=== PATIENT | male | born 1975 | race African-American/Black ===

== ENCOUNTER 2022-05-15 23:16 | Emergency (ER) | payer OTHER ==
[2022-05-15 23:31] VITALS: BP 154/93; PULSE 83; RESP 17; TEMP 98.1; BMI 31.5
[2022-05-16] MEDS ORDERED: IBUPROFEN 400 MG TABLET (FP) PO ONE ×2 (01:12→01:17)
[2022-05-16] MEDS ORDERED: METHOCARBAMOL 500 MG TABLET PO ONE (01:12)
[2022-05-16] MEDS ORDERED: METHOCARBAMOL 500 MG TABLET ONE (01:18)
== END 2022-05-16 02:48 | disposition home or self-care (01) ==
LOC: JER 23:16
DX: M54.50 Low back pain, unspecified (principal)
CPT/HCPCS: 99283-25